=== PATIENT | male | born 1975 | race Caucasian/White ===

== ENCOUNTER 2019-06-29 08:39 | Day surgery (SDC) | payer OTHER ==
[2019-06-29] MEDS ORDERED: MIDAZOLAM HCL 2 MG/2ML VIAL ONE (11:22)
[2019-06-29] MEDS ORDERED: BUPIVACAINE 0.5 % PF 150 MG/30 ML VIAL ONE (11:32)
[2019-06-29] MEDS ORDERED: EPINEPHRINE (1:1000) 1 MG/ML AMPUL ONE (11:43)
[2019-06-29] MEDS ORDERED: MORPHINE SULFATE/PF 10 MG/10ML (1MG/ML) AMPUL ONE (12:31)
[2019-06-29] MEDS ORDERED: HYDROCODONE/APAP 10/325MG 1 EA TABLET ONE (13:33)
[2019-06-29] MEDS ORDERED: HYDROCODONE/APAP 10/325MG 1 EA TABLET PO PRN (14:30)
== END 2019-06-29 14:05 | disposition home or self-care (01) ==
LOC: DS 08:39
PROVIDERS: ATTEND Orthopaedic Surgery
DX: M94.262 Chondromalacia, left knee (principal); M25.562 Pain in left knee; M23.204 Derangement of unspecified medial meniscus due to old tear or injury, left knee; M23.201 Derangement of unspecified lateral meniscus due to old tear or injury, left knee; G89.29 Other chronic pain; Z91.013 Allergy to seafood; I12.9 Hypertensive chronic kidney disease with stage 1 through stage 4 chronic kidney disease, or unspecified chronic kidney disease; N18.9 Chronic kidney disease, unspecified; Z79.899 Other long term (current) drug therapy
CPT/HCPCS: 29880; 88304; 88311; A4217; A6253; J0171; J2250; J2274; J3490